=== PATIENT | female | born 1975 | race Caucasian/White ===

== ENCOUNTER 2022-02-17 15:50 | Emergency (ER) | payer OTHER ==
[~2022-02-17] VITALS: Ht 162.6 cm; Wt 77.1 kg
== END 2022-02-17 20:05 | disposition home or self-care (01) ==
LOC: ER 15:50
DX: S90.02XA Contusion of left ankle, initial encounter (principal); S13.4XXA Sprain of ligaments of cervical spine, initial encounter; S00.83XA Contusion of other part of head, initial encounter; X58.XXXA Exposure to other specified factors, initial encounter; Y93.9 Activity, unspecified; Y92.9 Unspecified place or not applicable; Y99.9 Unspecified external cause status; I10 Essential (primary) hypertension; Z88.6 Allergy status to analgesic agent

== ENCOUNTER 2022-10-03 12:38 | Emergency (ER) | payer OTHER ==
[~2022-10-03] VITALS: Ht 162.6 cm; Wt 86.2 kg
[2022-10-03] MEDS ORDERED: METOPROLOL SUCC50 MG PO (13:12)
[2022-10-03] MEDS ORDERED: HYDROCHLOROTHIA25 MG PO (13:13)
[2022-10-03] MEDS ORDERED: LEVSIN/SL0.125 MG SL (19:57)
[2022-10-03] MEDS ORDERED: PEPCID AC20 MG PO (19:57)
== END 2022-10-03 21:27 | disposition home or self-care (01) ==
LOC: ER 12:38
DX: R10.9 Unspecified abdominal pain (principal); Z88.6 Allergy status to analgesic agent; I10 Essential (primary) hypertension